=== PATIENT | female | born 1990 | race Two or more races ===

== ENCOUNTER 2017-01-29 23:55 | Inpatient (IN) | payer MEDICAID ==
[~2017-01-29] VITALS: Ht 165.1 cm; Wt 89.8 kg
[2017-01-30 01:00] LABS: BILIRUBIN,URINE NEGATIVE (NEG); GLUCOSE,URINE NEGATIVE (NEG); NITRITE,URINE NEGATIVE (NEG); PROTEIN,URINE NEGATIVE (NEG-TRACE); UROBILINOGEN,URINE 0.2 mg/dL (0.2 mg/dL)
[2017-01-30] MEDS ORDERED: TERBUTALINE 1 MG/ML VIAL. SQ PRN (01:00)
[2017-01-30] MEDS ORDERED: BUTORPHANOL 2 MG/ML VIAL. IV PRN ×2 (01:00)
[2017-01-30] MEDS ORDERED: 0.9 % SODIUM CHLORIDE 10 ML DISP.SYRIN. IV PRN (01:00)
[2017-01-30] MEDS ORDERED: LIDOCAINE 1% PF 30 ML VIAL. INJ PRN (01:00)
[2017-01-30] MEDS ORDERED: ONDANSETRON PF 4 MG/2 ML VIAL. IV PRN (01:00)
[2017-01-30] MEDS ORDERED: fentaNYL PF VIAL 100 MCG/2 ML VIAL IV PRN ×2 (01:00)
[2017-01-30] MEDS ORDERED: ACETAMINOPHEN 325 MG TABLET. PO PRN (01:00)
[2017-01-30] MEDS ORDERED: OXYTOCIN 30 UNIT/500 ML PREMIX 500 ML IV PRN (01:00)
[2017-01-30] MEDS ORDERED: IBUPROFEN 800 MG TABLET. PO PRN (01:00)
[2017-01-30 01:06] LABS: BARBITURATES NEG (NEG); BENZODIAZEPINES NEG (NEG); CANNABINOIDS NEG (NEG); COCAINE NEG (NEG); METHADONE NEG (NEG); OPIATES NEG (NEG); PHENCYCLIDINE NEG (NEG)
[2017-01-30 01:12] LABS: BACTERIA,URINE MANY /HPF (0-FEW); SQUAMOUS EPITHELIAL CELL,UR MANY /LPF; WBC,URINE >40 /HPF (0-4)
[2017-01-30] MEDS ORDERED: DINOPROSTONE 10 MG SUPP.VAG VG ONE ×2 (01:30→18:00)
[2017-01-30] MEDS: IV RINGERS,LACTATED 1000ML 1,000 ML IV SCH ×3 (02:22→15:39)
[2017-01-30 02:32] LABS: BASO # 0.1 x10^3/uL (0.0-0.2); BASO % 1 % (0-3); EOS % 1 % (0-3); HEMATOCRIT 29.9 % (36.0-47.0); HEMOGLOBIN 9.5 g/dL (12.0-15.5); LYMPH % 26 % (24-48); MEAN CORPUSCULAR HEMOGLOBIN 25 pg (25-35); MEAN CORPUSCULAR HGB CONC 32 g/dL (31-37); MEAN CORPUSCULAR VOLUME 78 fL (79-100); MONO % 7 % (0-9); NEUT % 66 % (31-73); PLATELET COUNT 146 x10^3/uL (140-400); RED BLOOD COUNT 3.82 x10^6/uL (3.50-5.40); RED CELL DISTRIBUTION WIDTH 17.3 % (11.5-14.5); WHITE BLOOD COUNT 7.9 x10^3/uL (4.0-11.0)
[2017-01-30] MEDS ORDERED: L&D EPIDURAL CASSETTE 100 ML EP ONE (15:56)
[2017-01-30] MEDS ORDERED: ROPIVacaine 0.2% IN 0.9%NACL PF 40 MG/20 ML DISP.SYRIN. ONE ×2 (15:57→16:00)
[2017-01-30] MEDS ORDERED: L&D EPIDURAL CASSETTE 100 ML PUMP.RESVR. EP ONE (16:00)
[2017-01-31] MEDS: OXYTOCIN 30 UNIT/500 ML PREMIX 500 ML IV PRN ×2 (06:19→10:57)
[2017-01-31] MEDS: IV RINGERS,LACTATED 1000ML 1,000 ML IV SCH (06:20)
[2017-01-31] MEDS ORDERED: BUPIVACAINE 0.5% 50 ML VIAL. SQ ONE (10:30)
--- NOTE | 2017-01-31 10:53 | PDOC ---
VAGINAL DELIVERY DATE DATE: 01/31/17 TIME: 10:51 : 2 Para: 1 EDC: Feb 05, 2017 VAGINAL DELIVERY: VTX VACCUM ASSISTED: No PLACENTA: Spontaneous SEX: Male WEIGHT Weight [ ] Nuchal Cord: Yes, Times 1, Loose Amniotic Fluid: Clear PAIN: Local EPISIOTOMY: No EXTENSION: Yes EBL 300cc COMPLICATIONS None CONDITION Stable Signs of Intrauterine Infectio: None Shoulder Dystocia: No DIAGNOSIS TIUP del Problems: BRIANNA GALE MD Jan 31, 2017 10:53
[2017-01-31] MEDS ORDERED: HYDROCORTISONE 1% TOPICAL OINTMENT 30GM TUBE. TP PRN (11:00)
[2017-01-31] MEDS ORDERED: SIMETHICONE 80 MG TAB.CHEW PO PRN (11:00)
[2017-01-31] MEDS ORDERED: BENZOCAINE 20% TOPICAL AEROSOL SPRAY 57GM CAN. TP PRN (11:00)
[2017-01-31] MEDS ORDERED: 0.9 % SODIUM CHLORIDE 10 ML DISP.SYRIN. IV PRN (11:00)
[2017-01-31] MEDS ORDERED: ACETAMINOPHEN 325 MG TABLET. PO PRN (11:00)
[2017-01-31] MEDS ORDERED: OXYTOCIN 30 UNIT/500 ML PREMIX 500 ML IV PRN (11:00)
[2017-01-31] MEDS ORDERED: PHENYLEPH/MINERAL OIL/PETROLAT RECTAL OINTMENT 28GM TUBE. RC PRN (11:00)
[2017-01-31] MEDS ORDERED: diphenhydrAMINE HCL 25 MG CAPSULE PO PRN (11:00)
[2017-01-31] MEDS ORDERED: ZOLPIDEM 5 MG TABLET. PO PRN (11:00)
[2017-01-31] MEDS ORDERED: MAG HYDROX/ALUMINUM HYD/SIMETH 30 ML ORAL.SUSP PO PRN (11:00)
--- NOTE | 2017-01-31 11:02 | PDOC1 ---
OB - History Hx of Present Care: Good Care Ultrasounds: Normal mid trimester US Obstetrical Complications: None Medical Complications: None Past Family/Social History * Past Medical, Surgical, Family and Obstetric Histories reviewed from chart. Blood Type: A+ Rubella: Immune RPR/VDRL: Negative GBS Status: Negative HBsAG: Negative OB - Chief Complaint & HPI Date of Admission: Date of Admission: Jan 29, 2017 at 23:55 Chief Complaint/History : 2 Para: 1 Reason for admission: induction of labor Admission Nurse Assessment Rev: Yes Problems: OB - Admission Exam Physical Exam HEENT: Normal, Nasal Mucosa Normal, Oropharynx Normal, Moist Membranes, Fontanelles Normal Heart: Regular Rate Lungs: Clear, Equal Abdomen: Gravid Extremities: Normal Pulses, No tenderness or swelling Reflexes: Normal Cervical Dilatation: 1cm Effacement: 50% Station: Ballotable Amniotic Fluid: Clear Heart Rate: Normal Accelerations: Accelerations Present Decelerations: No decelerations Short Term Variability: Present Contractions on Admission: >10 Minutes Apart Assessment/Plan Assessment/Plan TIUP Cervidil Induction ACSVD Problems: BRIANNA GALE MD Jan 31, 2017 11:02
[2017-01-31] MEDS: IBUPROFEN 800 MG TABLET. PO SCH ×2 (11:31→22:49)
[2017-01-31] MEDS: HYDROcodone/APAP 5/325MG 1 TAB TABLET PO PRN ×3 (11:31→22:48)
[2017-01-31 14:07] VITALS: BP 113/63
[2017-01-31 15:10] VITALS: BP 111/61
[2017-01-31 18:15] VITALS: BP 117/76
[2017-01-31 21:00] VITALS: BP 125/77
[2017-01-31 22:59] VITALS: BP 130/92
[2017-02-01 06:00] VITALS: BP 102/62
[2017-02-01] MEDS ORDERED: FLU VACC QS2017-18 (36MOS+)/PF 0.5 ML SYRINGE. VAX IM ONE (08:15)
[2017-02-01] MEDS: FERROUS SULFATE 325 MG TABLET. PO SCH ×2 (08:54→20:47)
[2017-02-01] MEDS: IBUPROFEN 800 MG TABLET. PO SCH ×2 (08:54→20:47)
[2017-02-01 13:16] VITALS: BP 126/86
--- NOTE | 2017-02-01 14:11 | PDOC ---
Provider Note Provider Note Doing well VSS Uterus NTTP FU in AM BRIANNA GALE MD Feb 01, 2017 14:11
[2017-02-01] MEDS: MAGNESIUM HYDROXIDE 2,400 MG/30 ML ORAL.SUSP. PO PRN (20:47)
[2017-02-01 21:30] VITALS: BP 132/89
[2017-02-02 05:13] VITALS: BP 126/81
[2017-02-02 08:26] VITALS: BP 144/82
[2017-02-02] MEDS: MAGNESIUM HYDROXIDE 2,400 MG/30 ML ORAL.SUSP. PO PRN (08:35)
[2017-02-02] MEDS: FERROUS SULFATE 325 MG TABLET. PO SCH (08:35)
[2017-02-02] MEDS: IBUPROFEN 800 MG TABLET. PO SCH (11:28)
[2017-02-02 13:40] VITALS: BP 119/81
== END 2017-02-02 14:35 | disposition home or self-care (01) | DRG 775 ==
LOC: 3 SO LND 23:55 → 3 NORTH 01-31 13:20
PROVIDERS: ADMIT Specialist; ATTEND Specialist
PROC: 10E0XZZ Delivery of Products of Conception, External Approach (ICD-10-PCS; principal; 2017-01-31)
PROC: 3E0P7GC Introduction of Other Therapeutic Substance into Female Reproductive, Via Natural or Artificial Opening (ICD-10-PCS; 2017-01-31)
DX: O69.81X0 Labor and delivery complicated by cord around neck, without compression, not applicable or unspecified (principal); Z23 Encounter for immunization; Z37.0 Single live birth; Z3A.00 Weeks of gestation of pregnancy not specified
CPT/HCPCS: 36415; 80307; 81001; 85014; 85025; 86593; 86850; 86900; 86901; 87086; 90686; J2590; J2795; J3490; J7120; G0479

== ENCOUNTER 2017-09-16 21:17 | Emergency (ER) | payer SELFPAY, MEDICAID | END 2017-09-16 23:31 | disposition home or self-care (01) | LOC: ER 23:31 | DX: J01.90 Acute sinusitis, unspecified (principal); G51.0 Bell's palsy | CPT/HCPCS: 99283 ==

== ENCOUNTER 2018-12-15 18:58 | Inpatient (IN) | payer SELFPAY ==
[~2018-12-15] VITALS: Ht 162.6 cm; Wt 93.4 kg
[~2018-12-15 18:58] MED LIST: AMOX1TAB61 PO; PEG15DRO9 OP; PRED20TA PO
[2018-12-15] MEDS ORDERED: DOCUSATE SODIUM 283 MG/5 ML ENEMA. PR PRN (19:15)
[2018-12-15] MEDS ORDERED: 0.9 % SODIUM CHLORIDE 10 ML DISP.SYRIN. IV PRN (19:15)
[2018-12-15] MEDS ORDERED: NALBUPHINE 10 MG/ML AMPUL. IV PRN ×2 (19:15)
[2018-12-15] MEDS ORDERED: fentaNYL PF VIAL 100 MCG/2 ML VIAL IV PRN ×3 (19:15)
[2018-12-15] MEDS ORDERED: BUTORPHANOL 2 MG/ML VIAL. IV PRN ×2 (19:15)
[2018-12-15] MEDS ORDERED: ONDANSETRON PF 4 MG/2 ML VIAL. IV PRN (19:15)
[2018-12-15] MEDS ORDERED: ACETAMINOPHEN 325 MG TABLET. PO PRN (19:15)
[2018-12-15] MEDS ORDERED: LIDOCAINE 1% PF 30 ML VIAL. INJ PRN (19:15)
[2018-12-15] MEDS ORDERED: OXYTOCIN 30 UNIT/500 ML PREMIX 500 ML IV PRN (19:15)
[2018-12-15] MEDS ORDERED: CITRIC ACID/SODIUM CITRATE 30 ML SOLUTION. PO PRN (19:15)
[2018-12-15] MEDS ORDERED: TERBUTALINE 1 MG/ML VIAL. SQ PRN (19:15)
[2018-12-15] MEDS ORDERED: ZOLPIDEM 5 MG TABLET. PO PRN (19:15)
[2018-12-15] MEDS ORDERED: MAG HYDROX/ALUMINUM HYD/SIMETH 30 ML ORAL.SUSP PO PRN (19:15)
[2018-12-15 19:27] VITALS: BP 112/86
[2018-12-15] MEDS ORDERED: DINOPROSTONE 10 MG SUPP.VAG VG ONE (19:35)
[2018-12-15 19:36] LABS: BILIRUBIN,URINE NEGATIVE (NEG); CLARITY,URINE CLEAR; COLOR,URINE YELLOW; NITRITE,URINE NEGATIVE (NEG); PROTEIN,URINE NEGATIVE (NEG-TRACE)
[2018-12-15 19:43] LABS: SQUAMOUS EPITHELIAL CELL,UR MANY /LPF
[2018-12-15 19:44] LABS: BACTERIA,URINE MODERATE /HPF (0-FEW)
[2018-12-15] MEDS: IV RINGERS,LACTATED 1000ML 1,000 ML IV SCH (20:03)
[2018-12-15 20:07] LABS: BASO % 1 % (0-3); EOS % 0 % (0-3); HEMATOCRIT 27.2 % (36.0-47.0); HEMOGLOBIN 9.2 g/dL (12.0-15.5); LYMPH # 1.5 x10^3/uL (1.0-4.8); LYMPH % 20 % (24-48); MEAN CORPUSCULAR HEMOGLOBIN 26 pg (25-35); MEAN CORPUSCULAR HGB CONC 34 g/dL (31-37); MEAN CORPUSCULAR VOLUME 77 fL (79-100); MONO # 0.7 x10^3/uL (0.0-1.1); MONO % 9 % (0-9); NEUT # 5.5 x10^3/uL (1.8-7.7); NEUT % 70 % (31-73); PLATELET COUNT 137 x10^3/uL (140-400); RED BLOOD COUNT 3.53 x10^6/uL (3.50-5.40); RED CELL DISTRIBUTION WIDTH 16.7 % (11.5-14.5); WHITE BLOOD COUNT 7.8 x10^3/uL (4.0-11.0)
[2018-12-16] MEDS ORDERED: OXYTOCIN 30 UNIT/500 ML PREMIX 500 ML IV PRN ×2 (06:30→09:45)
[2018-12-16] MEDS: IV RINGERS,LACTATED 1000ML 1,000 ML IV SCH ×3 (07:40→19:14)
[2018-12-16] MEDS ORDERED: MMR per PROTOCOL. MC PRN (09:33)
--- NOTE | 2018-12-16 09:36 | PDOC1 ---
OB - History Hx of Present Care: Good Care Ultrasounds: Normal mid trimester US Obstetrical Complications: None Medical Complications: None Past Family/Social History * Past Medical, Surgical, Family and Obstetric Histories reviewed from chart. Blood Type: A+ Rubella: Immune RPR/VDRL: Negative GBS Status: Negative HBsAG: Negative OB - Chief Complaint & HPI Date of Admission: Date of Admission: Dec 15, 2018 at 18:58 Chief Complaint/History : 3 Para: 2 EDC: Dec 17, 2018 Reason for admission: induction of labor Indication for induction: other Admission Nurse Assessment Rev: Yes OB - Admission Exam Physical Exam Vitals: VS - Last 72 Hours, by Label Date Time Temp Pulse Resp B/P (MAP) Pulse Ox O2 Delivery O2 Flow Rate FiO2 12/16/18 07:53 16 Room Air 12/15/18 19:27 98.4 86 20 112/86 (95) Room Air 98.4 HEENT: Normal, Nasal Mucosa Normal, Oropharynx Normal, Moist Membranes, Fontanelles Normal Heart: Regular Rate Lungs: Clear, Equal Abdomen: Gravid Extremities: Normal Pulses, No tenderness or swelling Reflexes: Normal Cervical Dilatation: 1cm Effacement: 50% Station: Ballotable Amniotic Fluid: Clear Heart Rate: Normal Accelerations: Accelerations Present Decelerations: No decelerations Short Term Variability: Present Contractions on Admission: >10 Minutes Apart Assessment/Plan Assessment/Plan TIUP Induction ACS BRIANNA GALE MD Dec 16, 2018 09:36
--- NOTE | 2018-12-16 09:38 | PDOC ---
VAGINAL DELIVERY DATE DATE: 12/16/18 TIME: 09:36 : 3 Para: 2 EDC: Dec 17, 2018 VAGINAL DELIVERY: VTX VACCUM ASSISTED: No PLACENTA: Spontaneous SEX: Male WEIGHT 7#5oz Nuchal Cord: No Amniotic Fluid: Clear PAIN: Natural EPISIOTOMY: No EXTENSION: No EBL 300cc COMPLICATIONS none CONDITION Stable Signs of Intrauterine Infectio: None Shoulder Dystocia: No DIAGNOSIS BRIANNA Hunt MD Dec 16, 2018 09:38
[2018-12-16] MEDS ORDERED: diphenhydrAMINE HCL 25 MG CAPSULE PO PRN (09:45)
[2018-12-16] MEDS ORDERED: SIMETHICONE 80 MG TAB.CHEW PO PRN (09:45)
[2018-12-16] MEDS ORDERED: MAG HYDROX/ALUMINUM HYD/SIMETH 30 ML ORAL.SUSP PO PRN (09:45)
[2018-12-16] MEDS ORDERED: PHENYLEPH/MINERAL OIL/PETROLAT RECTAL OINTMENT 57GM TUBE. RC PRN (09:45)
[2018-12-16] MEDS ORDERED: HYDROCORTISONE 1% TOPICAL OINTMENT 30GM TUBE. TP PRN (09:45)
[2018-12-16] MEDS ORDERED: ZOLPIDEM 5 MG TABLET. PO PRN (09:45)
[2018-12-16] MEDS ORDERED: MAGNESIUM HYDROXIDE 2,400 MG/30 ML ORAL.SUSP. PO PRN (09:45)
[2018-12-16] MEDS ORDERED: 0.9 % SODIUM CHLORIDE 10 ML DISP.SYRIN. IV PRN (09:45)
[2018-12-16] MEDS ORDERED: BENZOCAINE 20% TOPICAL AEROSOL SPRAY 57GM CAN. TP PRN (09:45)
[2018-12-16] MEDS ORDERED: IBUPROFEN 400 MG TABLET. PO PRN (09:45)
[2018-12-16] MEDS: IBUPROFEN 400 MG TABLET. PO PRN ×2 (10:04→22:05)
[2018-12-16 13:10] VITALS: BP 119/71
[2018-12-16 14:00] VITALS: BP 114/77
[2018-12-16] MEDS: IBUPROFEN 400 MG TABLET. PO SCH ×2 (14:00→22:00)
[2018-12-16 17:00] VITALS: BP 116/77
[2018-12-16 20:15] VITALS: BP 138/68
[2018-12-17] VITALS (14 sets, daily range): BP systolic 114–145; BP diastolic 59–86
[2018-12-17] MEDS: IV RINGERS,LACTATED 1000ML 1,000 ML IV SCH ×3 (03:14→19:14)
[2018-12-17] MEDS: IBUPROFEN 400 MG TABLET. PO SCH ×3 (06:00→22:00)
[2018-12-17] MEDS: IBUPROFEN 400 MG TABLET. PO PRN ×2 (06:04→14:03)
[2018-12-17] MEDS ORDERED: IV RINGERS,LACTATED 1000ML 1,000 ML IV SCH (06:31)
[2018-12-17] MEDS ORDERED: LIDOCAINE 1% PF 2 ML VIAL. ID PRN (06:45)
[2018-12-17] MEDS ORDERED: fentaNYL PF VIAL 100 MCG/2 ML VIAL IV PRN (06:45)
[2018-12-17] MEDS ORDERED: PROCHLORPERAZINE 10 MG/2 ML VIAL. IV PRN (06:45)
[2018-12-17] MEDS ORDERED: HYDROmorphone 2 MG/ML VIAL IV PRN (06:45)
[2018-12-17] MEDS ORDERED: MORPHINE SULFATE 2 MG/ML VIAL. IV PRN (06:45)
[2018-12-17] MEDS ORDERED: ONDANSETRON PF 4 MG/2 ML VIAL. IV PRN (06:45)
[2018-12-17] MEDS ORDERED: PROPOFOL 20 ML IV ONE (07:57)
[2018-12-17] MEDS ORDERED: LIDOCAINE 2% PF 5 ML VIAL. ONE (07:57)
[2018-12-17] MEDS ORDERED: ONDANSETRON PF 4 MG/2 ML VIAL. ONE (07:57)
[2018-12-17] MEDS ORDERED: ROCURONIUM 50 MG/5 ML VIAL. ONE (07:57)
[2018-12-17] MEDS ORDERED: DEXAMETHASONE SOD PHOS 4 MG/ML VIAL ONE (07:57)
[2018-12-17] MEDS ORDERED: SUCCINYLCHOLINE 200 MG/10 ML VIAL. ONE (07:57)
[2018-12-17] MEDS ORDERED: fentaNYL PF VIAL 100 MCG/2 ML VIAL ONE (07:59)
[2018-12-17] MEDS ORDERED: BUPIVACAINE-EPI 0.5%-1:200000 MPF 30 ML VIAL. INJ ONE (08:30)
[2018-12-17] MEDS ORDERED: GLYCOPYRROLATE 1 MG/5 ML VIAL. ONE (09:05)
[2018-12-17] MEDS ORDERED: NEOSTIGMINE METHYLSULFATE 5 MG/5 ML SYRINGE. ONE (09:05)
[2018-12-17] MEDS ORDERED: KETOROLAC 30 MG/ML INJ FOR OR. INJ ONE (09:10)
[2018-12-17] MEDS ORDERED: SEVOFLURANE 31 TO 60 MINUTES. IH ONE (09:10)
[2018-12-17] MEDS ORDERED: BUPIVACAINE-EPI 0.25%-1:200000 MPF 30 ML VIAL. INJ ONE (09:30)
--- NOTE | 2018-12-17 09:49 | PDOC ---
BRIEF OPERATIVE NOTE Pre-Op Diagnosis Multiparous desires permanent sterilization Post-Op Diagnosis Same Procedure Performed PPBTL Surgeon Albino Guest Attendant None Anesthesia Type: General Blood Loss 10cc Specimens Obtained R and L ova ducts Complications None BRIANNA GALE MD Dec 17, 2018 09:49
[2018-12-17] MEDS: fentaNYL PF VIAL 100 MCG/2 ML VIAL IV PRN ×2 (10:00→10:13)
[2018-12-17] MEDS: ACETAMINOPHEN 325 MG TABLET. PO PRN ×2 (11:11→18:03)
[2018-12-17] MEDS: FERROUS SULFATE 325 MG TABLET. PO SCH ×3 (11:11→18:03)
--- NOTE | 2018-12-17 18:12 | OP ---
DATE OF SURGERY: 12/17/2018 PREOPERATIVE DIAGNOSIS: Multiparous, desires permanent sterilization. POSTOPERATIVE DIAGNOSES: Multiparous, desires permanent sterilization. PROCEDURE: bilateral tubal ligation with Filshie clips. SURGEON: Clark Posada MD ORE TESTER: None. ANESTHESIA: General. ESTIMATED BLOOD LOSS: 5 mL. FLUIDS: Crystalloid. SPECIMENS: Right and left oviducts. COMPLICATIONS: None. CONDITION: Stable. DESCRIPTION OF PROCEDURE: After risks, benefits, indication, alternatives discussed in detail with the patient. The patient was brought to OR theater, placed in supine position. After adequate general anesthesia, the patient was prepped and draped in usual sterile manner. A transverse infraumbilical incision was made sharply with a scalpel, carried down through subcutaneous tissue with Cuevas scissors. Rectus fascia was grasped x 2 with Deven clamps, elevated above the intraabdominal contents, incised sharply with a scalpel. Peritoneum was entered bluntly with gloved hand. Retractors were placed within the incision first to manipulate the incision over the left cornu. Left kidney was identified, followed to its fimbriated end with Clarence clamps, relatively avascular portion in the mid ampullary region was identified. A window was created with Bovie cautery. The 2-0 plain ties were used to doubly ligate the tube approximately 2-3 cm apart. Tube was transected between these two ligatures. The ends of the tube were burned. The tube was allowed to fall back within the abdominal cavity. Same procedure was carried out on the opposite side. The patient was taken out of Trendelenburg. The fascia was grasped with Deven clamps reapproximated with 0 Vicryl in a running manner. Subcutaneous tissue was wiped free of any blood. Skin was reapproximated with 4-0 Monocryl in subcuticular fashion. Sponge, needle and instrument counts were correct x 2 per nursing staff. CLARK POSADA MD DR: CORI/hema JOB#: [id number] / [id number]
[2018-12-18] MEDS: ACETAMINOPHEN 325 MG TABLET. PO PRN (00:15)
[2018-12-18] MEDS: IBUPROFEN 400 MG TABLET. PO PRN (00:15)
[2018-12-18] MEDS: IV RINGERS,LACTATED 1000ML 1,000 ML IV SCH ×2 (01:28→01:29)
[2018-12-18] MEDS: IBUPROFEN 400 MG TABLET. PO SCH (01:29)
[2018-12-18 05:47] VITALS: BP 108/51
--- NOTE | 2018-12-18 10:56 | PDOC3 ---
OB DISCHARGE SUMMARY DATE OF ADMISSION: 12/16/18 DATE OF DISCHARGE: 12/18/18 REASON FOR ADMISSION: Induction of labor PROCEDURES: Ultrasound INTRAPARTUM PROCEDURES: Spontanous Vag Deliv PROCEDURES: Tubal Ligation DISCHARGE DIAGNOSIS: Term Delivered DISCHARGE INFORMATION: Activity, Diet HOSPITAL COURSE Unremarkable CONDITION AT DISCHARGE BRIANNA Salinas MD Dec 18, 2018 10:56
[2018-12-18 11:00] VITALS: BP 124/70
[2018-12-18] MEDS ORDERED: NAPR-514 PO (11:00)
[2018-12-18] MEDS ORDERED: OXYC1TAB15 PO (11:00)
--- NOTE | 2018-12-18 15:07 | PATHOLOGY ---
[facility] Accession Number: [id number] . 01 Material submitted: . PART A: fallopian tube - RIGHT TUBE. Modifiers: right PART B: fallopian tube - LEFT TUBE. Modifiers: left . 01 Clinical history: . Desires sterilization . 02 Diagnosis: A. Right tubal ligation: - Segment of fallopian tube confirmed. . B. Left tubal ligation: - Segment of paratubal tissue identified - no fallopian tube identified. (JPM:chana; 12/18/2018) MBR/12/18/2018 . 02 Electronically signed: . Martin Moore MD, Pathologist NPI- [id number] . 01 Gross description: . A. The specimen is received in formalin, labeled "Zamoranomendoza, Malina, right tube" and consists of a pink nonfimbriated fallopian tube segment measuring 2.5 cm in length and up to 0.5 cm in diameter. Sectioning reveals a well-defined lumen and no gross lesions. Herpetology Teacher sections are submitted in A1. . B. The specimen is received in formalin, labeled "Zamoranomendoza, Malina, left tube" and consists of a pink nonfimbriated fallopian tube segment and consists of a segment of pink-fernandez tissue measuring 1.5 cm in length and 0.4 cm in diameter. Sectioning reveals a possible lumen and the specimen is entirely submitted in B1. (FLORENTINOY; 12/17/2018) SYU/SYU . 02 Pathologist provided ICD-10: Z30.2 . 02 CPT . 835369, [id number] Specimen Comment: A courtesy copy of this report has been sent to Specimen Comment: [phone]. Specimen Comment: Report sent to Performed at: 01 [facility] [address], [place] [id number] MD Rashid Sagastume MD Phone: [phone] Performed at: [address] [facility] [address] [place] [address], [place] [id number] MD Martin Moore MD Phone: [phone]
[2018-12-18 16:00] VITALS: BP 124/70
== END 2018-12-18 16:00 | disposition home or self-care (01) | DRG 798 ==
LOC: 3 SO LND 18:58 → 3 NORTH 12-16 11:41
PROVIDERS: ADMIT Specialist; ATTEND Specialist
PROC: 10E0XZZ Delivery of Products of Conception, External Approach (ICD-10-PCS; principal; 2018-12-16)
PROC: 0UL70CZ Occlusion of Bilateral Fallopian Tubes with Extraluminal Device, Open Approach (ICD-10-PCS; 2018-12-16)
DX: O80 Encounter for full-term uncomplicated delivery (principal); Z37.0 Single live birth; Z3A.39 39 weeks gestation of pregnancy; Z30.2 Encounter for sterilization
CPT/HCPCS: 36415; 81001; 85014; 85025; 86592; 86850; 86900; 86901; 87086; 88302; 92585; A7015; J0330; J1100; J1885; J2001; J2405; J2590; J2704; J2710; J3010; J3490; J7120; G0378